=== PATIENT | female | born 1995 | race Caucasian/White ===

== ENCOUNTER 2019-02-06 12:21 | Inpatient (IN) | payer BC, OTHER ==
[~2019-02-06] VITALS: Ht 165.1 cm; Wt 82.0 kg
[2019-02-06] MEDS ORDERED: VITAFOL-OB+DHA1 EACH PO (21:20)
--- NOTE | 2019-02-07 13:05 | PR ---
[facility] [address] [facility] [place], [place] [address] Signed PP Progress Notes Datetime Report Generated by CPJose: 02/07/2019 13:05 SUBJECTIVE: [id number] Pain: Within normal limits Nausea/Vomiting: Denies Flatus: No Bowel Movement: No Vital Signs: [id number] Vital Signs: Reviewed; Within Normal Limits EXAM: [id number] Cardiovascular: Normal Respiratory: Normal Abdomen/Uterus: Normal Lochia: Normal Vulva/Perineum: Abnormal Breasts: Not Done CVA Tenderness: Normal Extremities: Normal Incision: Not Applicable Progress: Normal Exam Comments: Fundus Firm U-2 nontender. Vulva very edematous per RN. Ken cath remains in place IMPRESSION/PLAN/PROCEDURES: [id number] Impression: Normal progression Plan: Continue present management Progress Notes: Pt seen and examined. Doing well. Ambulating and tolerating full diet. Ken cath remains in place secondary to vulvar edema after . well. Bleeding light. No other concerns. Anticipate ken out in the AM and d/c home tomorrow. Signing Physician: Amador Ortiz DO Copies: ~ *Electronically Signed* 02/07/19 7872 AMADOR ORTIZ DO PATIENT NAME: NGUYEN CAMARENA PROGRESS NOTE DATE OF : 89 PHYSICIAN: AMADOR ORTIZ DO RPT #: [id number] REPORT IS CONFIDENTIAL AND NOT TO BE RELEASED WITHOUT AUTHORIZATION
--- NOTE | 2019-02-08 08:07 | PR ---
[facility] [facility] [address] [place], [place] [address] Signed PP Progress Notes Datetime Report Generated by CPN: 02/08/2019 08:07 SUBJECTIVE: [id number] Pain: Within normal limits Nausea/Vomiting: Denies Flatus: Yes Bowel Movement: No Vital Signs: [id number] Vital Signs: Reviewed; Within Normal Limits EXAM: [id number] Cardiovascular: Normal Respiratory: Normal Abdomen/Uterus: Normal Lochia: Normal Vulva/Perineum: Not Done Breasts: Not Done CVA Tenderness: Normal Extremities: Normal Incision: Not Applicable Progress: Normal Exam Comments: Fundus firm U-2 nontender IMPRESSION/PLAN/PROCEDURES: [id number] Impression: Normal progression Plan: Discharge Procedures: Rhogam Progress Notes: Pt seen and examined. Doing well. Ambulating, voiding, and tolerating full diet. Pain and lochia minimal. Vulvar swelling much reduced and ken was removed last night. No fevers/chills. well. Desires d/c home today. S/P Rhogam. Planning Mirena for pp contraception. All questions answered and pp instructions reviewed. Signing Physician: Amador Ortiz DO Copies: ~ *Electronically Signed* 02/08/19806 AMADOR ORTIZ DO PATIENT NAME: NGUYEN CAMARENA PROGRESS NOTE DATE OF : 97 PHYSICIAN: AMADOR ORTIZ DO RPT #: [id number] REPORT IS CONFIDENTIAL AND NOT TO BE RELEASED WITHOUT AUTHORIZATION
== END 2019-02-08 09:50 | disposition home or self-care (01) | DRG 806 ==
LOC: FBCO 12:21 → FBC 12:31
PROVIDERS: ADMIT Obstetrics & Gynecology
PROC: 10E0XZZ Delivery of Products of Conception, External Approach (ICD-10-PCS; principal; 2019-02-06)
PROC: 0HQ9XZZ Repair Perineum Skin, External Approach (ICD-10-PCS; 2019-02-06)
PROC: 00HU33Z Insertion of Infusion Device into Spinal Canal, Percutaneous Approach (ICD-10-PCS; 2019-02-06)
PROC: 3E0R3BZ Introduction of Anesthetic Agent into Spinal Canal, Percutaneous Approach (ICD-10-PCS; 2019-02-06)
PROC: 3E0234Z Introduction of Serum, Toxoid and Vaccine into Muscle, Percutaneous Approach (ICD-10-PCS; 2019-02-07)
DX: O70.0 First degree perineal laceration during delivery (principal); D62 Acute posthemorrhagic anemia; Z37.0 Single live birth; Z3A.38 38 weeks gestation of pregnancy; O36.63X0 Maternal care for excessive fetal growth, third trimester, not applicable or unspecified; O90.81 Anemia of the puerperium; O26.893 Other specified pregnancy related conditions, third trimester; O71.82 Other specified trauma to perineum and vulva; Z67.11 Type A blood, Rh negative; Z86.19 Personal history of other infectious and parasitic diseases
CPT/HCPCS: 01960; 36415; 83030; 85027; 86850; 86870; 86900; 86901; J2590; J2790; J2795